=== PATIENT | male | born 1980 | race Caucasian/White ===

== ENCOUNTER 2025-03-14 14:47 | Emergency (ER) | payer OTHER, SELFPAY ==
[2025-03-14 14:55] VITALS: BP 120/77; PULSE 88; RESP 18; TEMP 36.4; O2SAT 97; BMI 27.9
[2025-03-14 15:19] LABS: Appearance Urine Clear (Clear)
--- NOTE | 2025-03-14 15:57 | CRLHL7_ITS ---
For Patients: As a result of the Century Cures Act, medical imaging exams and procedure reports are released immediately into your electronic medical record. You may view this report before your referring provider. If you have questions, please contact your health care provider. Indication: RT FLANK PAIN Technique: CT abdomen/pelvis without IV contrast Comparison: None Findings: Lower thorax: Trace bibasilar linear atelectasis/scarring. Abdomen/pelvis: The liver, gallbladder and biliary system, spleen, pancreas, adrenal glands, kidneys, ureters, decompressed bladder, seminal vesicles, prostate, and imaged external genitalia are unremarkable. No bowel obstruction or inflammation. The appendix is normal. Few colonic diverticula. No free air, free fluid, or fluid collections. No abdominopelvic lymphadenopathy. Small right pelvic phlebolith; otherwise, the vasculature is unremarkable. Soft tissue/musculoskeletal: Tiny fat containing umbilical hernia. The bones are unremarkable. Impression: 1. No CT evidence of an acute process involving the abdomen or pelvis. 2. No urinary tract calculi. Please note that all CT scans at this facility use dose modulation, iterative reconstruction, and/or weight-based dosing when appropriate to reduce radiation dose to as low as reasonably achievable. Dictated by Timothy Zelaya MD @ 03/14/2025 5:25:35 PM (Electronically Signed)
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
[2025-03-14 16:53] LABS: Hematocrit 46.6 % (37.0-53.0); Hemoglobin* 15.1 gm/dL (13.5-17.5); Immature Granulocytes Abs Auto 0.01 K/uL (0.00-0.30); Immature Granulocytes Pct Auto 0.2 %; Lymphocytes Absolute Auto 1.72 K/uL (0.90-2.90); Mean Corpuscular HGB Conc 32 gm/dL (32-36); Mean Corpuscular Hemoglobin 29 pg (26-34); Mean Corpuscular Volume 88 fL (80-100); RDW Coefficient of Variation % 14.6 % (11.5-15.5); Red Blood Count 5.29 m/uL (4.30-5.90); White Blood Count* 5.68 K/uL (4.50-11.00)
[2025-03-14 17:00] LABS: Slide Review Reflex No
[2025-03-14] MEDS: ONDANSETRON 2 MG/ML inj 4 MG IVP (17:04)
[2025-03-14 17:05] LABS: Albumin* 4.3 g/dL (3.3-5.0); Chloride* 104 mmol/L (96-114); Sodium* 138 mmol/L (135-149)
[2025-03-14 17:06] LABS: Potassium* 4.2 mmol/L (3.6-5.1)
[2025-03-14 17:08] LABS: Alanine Aminotransferase* 25 U/L (4-50); Alkaline Phosphatase* 66 U/L (40-150); Anion Gap 8 mEq/L (7-15); Aspartate Amino Transferase* 25 U/L (12-35); Bilirubin Total* 0.3 mg/dL (0.1-1.5); Blood Urea Nitrogen* 19 mg/dL (5-24); Carbon Dioxide* 26 mmol/L (20-32); Creatinine* 1.0 mg/dL (0.5-1.5); Est. Creatinine Clearance* 88.13; Estimated Glomerular Filt Rate 95 ml/min; Total Protein* 7.3 g/dL (6.0-8.3)
[2025-03-14 17:09] LABS: Calcium* 9.2 mg/dL (8.4-10.6); Glucose* 89 mg/dL (60-115)
[2025-03-14 19:43] VITALS: BP 127/82; PULSE 75; RESP 16; O2SAT 96
== END 2025-03-14 19:47 | disposition home or self-care (01) ==
PROVIDERS: Emergency Provider Emergency Medicine
DX: R10.9 Unspecified abdominal pain (principal); M54.50 Low back pain, unspecified
CPT/HCPCS: 36415; 74176; 80053; 81001; 83690; 85025; 96361; 96374; 96375; 99283; 99284; J1885; J2405; J7030

== ENCOUNTER 2025-03-20 17:05 | Emergency (ER) | payer OTHER, SELFPAY ==
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
[2025-03-20 17:19] VITALS: BP 132/83; PULSE 80; RESP 16; TEMP 36.4; O2SAT 96
--- NOTE | 2025-03-20 17:43 | ED_ITS ---
HPI - General Adult General Date Seen: 03/20/25 Chief complaint: Unspecified Complaint, Adult Stated complaint: Follow up for back pain, needs release to work Time Seen by Provider: 03/20/25 17:21 Source: patient and water aerobics instructor Mode of arrival: ambulatory Limitations: no limitations History of Present Illness HPI narrative: Patient is a 44-year-old male presenting to the emergency department for back pain. He was seen in this ED on 03/14/2025 for this same back pain. Was given work note with work restrictions and told to follow-up in 5-7 days. He states he has been trying to set up primary care but unable to get an appointment. Due to that he is back here today to get another work note with no restrictions. States the back pain is about a 3 to 4/10. Denies any saddle anesthesia, fevers, urinary retention. Pain does not radiate anywhere. States he has had this that the pain multiple times in the past and was seen primary [place] for this. He states he has been told multiple times that they cannot find a cause of his back pain. No other concerns noted. Related Data Home Medications ?Medication ?Instructions ?Recorded ?Confirmed omeprazole .Route 03/14/25 Previous Rx's ?Medication ?Instructions ?Recorded cyclobenzaprine 10 mg tablet 10 mg PO TID PRN muscle s pasm #14 03/14/25 tabs hydrocodone 5 mg-acetaminophen 325 1 tab PO Q6H PRN pa in #10 tabs 03/14/25 mg tablet Allergies Allergy/AdvReac Type Severity Reaction Status Date / Time penicillin G Allergy Verified 03/20/25 17:17 Review of Systems Narrative: Pertinent systems reviewed and were negative unless stated in HPI PFSH PFSH Social History Smoking Status: Current every day smoker What tobacco products do you use: cigarettes How often do you have a drink containing alcohol: monthly or less How many standard drinks containing alcohol do you have on a typical day: 1 or 2 How often do you have six or more drinks on one occasion: Never AUDIT-C Alcohol total score: 1 Non-prescribed substance use: denies use service: No Exam Narrative: Exam Narrative: Const: Well-nourished, Well-developed, in no distress Eyes: PERRL, no conjunctival injection, and symmetrical lids HENT: Atraumatic external nose and ears. Moist mucous membranes. MSK:Extremities w/o deformity, Normal Active ROM Skin: Warm, Dry. No rashes or lesions. Neuro: Normal Muscle tone, No focal neurological deficits. Psych: Awake, Alert, & Oriented x3. Appropriate mood and affect. Const: Vital Signs, click to edit/add: Vital Signs - 24 hr 03/20/25 17:19 Temperature 97.6 F Pulse Rate [Pulse Oximeter] 80 Respiratory Rate 16 Blood Pressure [Ri ght Upper Arm] 132/83 Pulse Oximetry 96 Oxygen Delivery Me thod Room Air Course Vital Signs Vital signs: Initial Vital Signs Temperature 97.6 F 03/20/25 17:19 Temperature Source Temporal Artery Scan 03/20/25 17:19 Pulse Rate 80 03/20/25 17:19 Respiratory Rate 16 03/20/25 17:19 Blood Pressure 132/83 03/20/25 17:19 Blood Pressure Mean 99 03/20/25 17:19 Pulse Oximetry 96 03/20/25 17:19 Oxygen Delivery Method Room Air 03/20/25 17:19 Vital Signs Temperature 97.6 F 03/20/25 17:19 Pulse Rate 80 03/20/25 17:19 Respiratory Rate 16 03/20/25 17:19 Blood Pressure 132/83 03/20/25 17:19 Pulse Oximetry 96 03/20/25 17:19 Oxygen Delivery Method Room Air 03/20/25 17:19 Temperature 97.6 F 03/20/25 17:19 Pulse Rate 80 03/20/25 17:19 Respiratory Rate 16 03/20/25 17:19 Blood Pressure 132/83 03/20/25 17:19 Pulse Oximetry 96 03/20/25 17:19 Oxygen Delivery Method Room Air 03/20/25 17:19 Medical Decision Making MDM Narrative Medical decision making narrative: Patient is a 44-year-old male presenting for left low back pain. This is the same pain he was here for 1 week ago. He sees a [facility]us multiple times before. Imaging was done showing no concerning abnormalities. Do not believe repeat imaging is necessary. Low concern for AAA or nephrolithiasis. Will discharge him with the work note. Discharge Plan Discharge Clinical Impression: Low back pain Qualifiers: Chronicity: unspecified Back pain laterality: left Sciatica presence: without sciatica Qualified Code(s): M54.50 - Low back pain, unspecified Patient Disposition: Home, Self-Care Condition: Stable Instructions: Acute Low Back Pain (ED) Additional Instructions: It is very important to set up primary care. Return to emergency department for new or worsening symptoms. Prescriptions: No Action omeprazole .Route hydrocodone-acetaminophen 5-325 mg tablet 1 tab PO Q6H PRN (Reason: pain) Qty: 10 0RF cyclobenzaprine 10 mg tablet 10 mg PO TID PRN (Reason: muscle spasm) Qty: 14 0RF Follow Up/Referrals: Provider,Not a Local [Primary Care Provider, Family Practice] Stand Alone Forms: Work/School Release, MyHealth Info Instructions
== END 2025-03-20 17:58 | disposition home or self-care (01) ==
LOC: ED 17:50
PROVIDERS: Emergency Provider Student in an Organized Health Care Education/Training Program
DX: M54.50 Low back pain, unspecified (principal)
CPT/HCPCS: 99282; 99283